=== PATIENT | male | born 1955 | race Caucasian/White ===

== ENCOUNTER → 2019-10-01 | Outpatient (CLI) | payer OTHER ==
[~2019-10-01] MED LIST: HUMALOG100 UNIT/1 SUBQ; LANTUS SUBQ; LYRICA300 MG PO; NORCO 5-325 TA1 EAC1 PO; PROTONIX 20 MG20 MG PO; WELLBUTRIN SR150 MG PO
[2019-10-01 14:35] VITALS: BP 117/65
--- NOTE | 2019-10-01 16:44 | NUR ---
IN FOR PICC LINE PLACEMENT AND 1ST DOSE OF CEFEPIME FOR A UTI. ADMISSION HISOTRY AND ASSESSMENT COMPLETED. PATIENT HAS NO ALLERGIES. IV TEAM PLACED PICC LINE IN KIM WITHOUT DIFFICULTY. PLACEMENT VERIFIED BY CXR. TOLERATED INFUSION WITHOUT INCIDENT. OBSERVED FOR 15 MINUTES AND THEN DISMISSED IN STABLE CONDITION. NURSE CAME AND INSTRUCTED PATIENT ON HOME CARE.
--- NOTE | 2019-10-02 00:30 | NUR ---
RISK, BENEFITS, AND ALTERNATIVE TREATMENT DISCUSSED WITH THE PATIENT RELATED TO PICC PROCEDURE. TEACHING GIVEN RELATED TO POSSIBLE COMPLICATIONS SUCH BLEEDING, INFECTION, CLOT, OR VESSEL PERFORATION. INSTRUCTION GIVEN RELATED TO CLABSI PREVENTION WITH LITERATURE PROVIDED. PATIENT VOICES UNDERSTANDING TO THE ABOVE AND GIVES CONSENT. WRITTEN CONSENT OBTAINED. SINGLE LUMEN PICC PLACED TO RUE BASILIC VEIN. ONE STICK AND NO COMPLICATIONS . PATIENT TOLERATED WELL. CHEST XRAY OBTAINED WITH PICC PULLED BACK 2 CM AFTERWARDS WITH PICC NOW IN DISTAL SVC. PATIENT'S RN NOFIED OKAY TO USE.
== END ==
LOC: OPONC 12:54
DX: N39.0 Urinary tract infection, site not specified (principal)
CPT/HCPCS: 27000; 95000